=== PATIENT | female | born 1940 | race Caucasian/White ===

== ENCOUNTER 2016-12-12 09:10 | Day surgery (SDC) | payer MEDICARE, OTHER ==
[~2016-12-12] VITALS: Ht 157.5 cm; Wt 63.5 kg
[~2016-12-12 09:10] MED LIST: ANAS1TAB7 PO; ASPI-973 PO; CALC600T12 PO; CHOL200047 PO; DOCU240C41 PO; FEXO-15 PO; LOSA50TA37 PO; OMEP20TA24 PO; SIMV20TA4 PO; Sodium Chloride LOK Flush 10 mL Syringe IV PRN; UBID100C16 PO; fentaNYL-PF 50 mCg/mL 2 mL Inj IVPUSH PRN
[2016-12-12 09:37] VITALS: BP 145/60; PULSE 51; RESP 16; O2SAT 100
[2016-12-12] MEDS: 0.9% Sodium Chloride 1,000 ML IV SCH ×2 (09:42→10:14)
[2016-12-12] MEDS ORDERED: MAGN250T29 PO (09:43)
[2016-12-12 10:33] VITALS: BP 113/47; PULSE 52; RESP 16; O2SAT 95
[2016-12-12 10:45] VITALS: BP 100/42; PULSE 51; RESP 16; O2SAT 98
[2016-12-12 10:55] VITALS: BP 115/57; PULSE 56; RESP 16; O2SAT 98
--- NOTE | 2016-12-12 11:25 | ENDO ---
[address] [address] ENDOSCOPY PROCEDURE PATIENT: RAMILA REEDRE : 1940 MR#: [id number] ADMIT: 12/12/2016 JOB ID: [id number] PROCEDURE: Esophagogastroduodenoscopy. INDICATION: Gastroesophageal reflux. ASA CLASSIFICATION: 2. MALLAMPATI SCORE: 2. MEDICATIONS: Versed 3 mg, fentanyl 50 mcg. INSTRUMENT USED: [id number]. PROCEDURE DETAILS: After informed consent was obtained, the patient was brought into the GI suite, where she was placed on oxygen via nasal cannula and monitored with continuous pulse oximeter, telemetry, and blood pressure monitoring. A time-out was performed. Then, she was placed in a left lateral decubitus position and medications were administered for sedation. A bite block was placed. The standard EGD scope was then inserted through the bite block and advanced under direct visualization to the second portion of duodenum without difficulty. FINDINGS: 1. Normal-appearing duodenal bulb, first and second portion. 2. Normal-appearing pylorus. 3. Normal-appearing antrum and body of the stomach. 4. Retroflexed views in the gastric body revealed a flat, approximately 4 mm polyp in the fundus. Polyp was biopsied using cold biopsy forceps. 5. Multiple random biopsies were obtained throughout the antrum and body of the stomach. 6. The GE junction was at approximately 41 cm. The GE junction was slightly irregular, with several short tongues of salmon-colored mucosa arising from the GE junction. Multiple biopsies were obtained. The remainder of the esophagus was otherwise unremarkable. IMPRESSION: 1. Flat polyp in the fundus. 2. Irregular gastroesophageal junction. RECOMMENDATIONS: 1. Await biopsy results. 2. Continue PPI daily. COMPLICATIONS: None. ESTIMATED BLOOD LOSS: Less than 5 mL.
--- NOTE | 2016-12-13 16:08 | PATH ---
SURGICAL PATHOLOGY Attending Physician:Juana Huang CASE STATUS: Signed Out PATIENT NAME: RAMILA REEDER PID: [id number] : 1940 DATE COLLECTED:12/12/2016 16:35 SPECIMEN: 1: Gastric, Biopsy 2: Stomach, Biopsy 3: Esophagus, Biopsy CLINICAL HISTORY: 1. RANDOM GASTIC BXS 2. FUNDUS POLYP 3. DISTAL ESOPHAGUS BXS FINAL DIAGNOSIS: 1. Random Gastric Biopsies: Gastric body-type mucosa with no diagnostic abnormality. No Helicobacter organisms identified by H&E stain. Negative for intestinal metaplasia, dysplasia, and malignancy. 2. Fundus, Polyp, Biopsy: Gastric antral and body-type mucosa with scant, mildly dilated glands and focal, foveolar hyperplasia, favor fundic gland polyp, if clinical and imaging findings are concordant. Negative for intestinal metaplasia, dysplasia, and malignancy. 3. Distal Esophagus, Biopsies: Portions of oxyntic mucosa with no diagnostic abnormality. Negative for intestinal metaplasia, dysplasia, and malignancy. No squamous mucosa / squamocolumnar junctional mucosa identified for evaluation. ICD10: K29.7 GROSS DESCRIPTION: The specimen is received in three formalin filled containers labeled with the patient's name. 1). The specimen is sublabeled "random gastric" and consists of 4 portions of tissue which aggregate to 0.4 x 0.4 x 0.3 CM. The specimen is entirely submitted in cassette 1A. 2). The specimen is sublabeled "fundus polyps" and consists of 2 portions of tissue which aggregate to 0.4 x 0.3 x 0.2 CM. The specimen is entirely submitted in cassette 2A. 3). The specimen is sublabeled "distal esophagus" and consists of 2 portions of tissue which aggregate to 0.3 x 0.2 x 0.2 CM. The specimen is entirely submitted in cassette 3A. 12/12/2016 [facility] ICD-9 CODES: CPT CODES: 1: 50064 2: 02739 3: 81694 Electronically Signed Out Blanquita Cortez MD [facility] Pathology [facility] [address], [place] [address] Technical component performed at [facility], [facility] [address], [place], [address]
== END 2016-12-12 23:59 | disposition home or self-care (01) ==
LOC: END 09:10
PROVIDERS: ATTEND Internal Medicine Gastroenterology
DX: K21.9 Gastro-esophageal reflux disease without esophagitis (principal); K29.70 Gastritis, unspecified, without bleeding; K31.7 Polyp of stomach and duodenum; R10.13 Epigastric pain; Z85.3 Personal history of malignant neoplasm of breast; Z79.82 Long term (current) use of aspirin
CPT/HCPCS: 43239; G0500; J2250; J7030